=== PATIENT | female | born 1950 | race African-American/Black ===

== ENCOUNTER 2018-02-24 13:41 | Outpatient (CLI) | payer MEDICARE ==
--- NOTE | 2018-02-25 08:17 | Mammography Report ---
Bilateral mammogram: Compared to 05/16/15. CAD study utilized. Findings: Bilateral stable breast implants. Adjacent breast parenchyma there is no microcalcification or distinct mass. Benign findings. Benign exam. Impression: Benign findings. Annual followup recommended. BI-RADS CATEGORY: 2 = Benign ACR BI-RADS MAMMOGRAPHIC CODES: 0 = Needs additional imaging evaluation; 1 = Negative; 2 = Benign; 3 = Probably benign; 4 = Suspicious; 5 = Malignant; 6 = Known biopsy-proven malignancy COMMENT: 1. Dense breast tissue, i.e., adenosis, fibrocystic changes, etc., may obscure an underlying neoplasm. 2. Approximately 10% of cancers are not detected with mammography. 3. A negative mammography report should not delay biopsy if a clinically suspicious mass is present. COMMENT: Patient follow-up letters are generated in [employer].
== END 2018-02-24 13:42 | disposition home or self-care (01) ==
LOC: MAMMO 13:41
PROVIDERS: ATTEND Internal Medicine
DX: Z12.31 Encounter for screening mammogram for malignant neoplasm of breast (principal)
CPT/HCPCS: 77067

== ENCOUNTER 2018-09-22 09:45 | Outpatient (CLI) | payer MEDICARE ==
[2018-09-22 13:50] LABS: Chol/HDL Ratio 2.84 %
== END 2018-09-22 09:46 | disposition home or self-care (01) ==
LOC: LAB 09:45
PROVIDERS: ATTEND Internal Medicine
DX: E78.5 Hyperlipidemia, unspecified (principal); E55.9 Vitamin D deficiency, unspecified; I10 Essential (primary) hypertension
CPT/HCPCS: 36415; 80061; 82306; 83036

== ENCOUNTER 2019-03-08 10:17 | Outpatient (CLI) | payer MEDICARE ==
[2019-03-08 11:18] LABS: Hematocrit 43.4 % (30.3-42.9); Hemoglobin 14.5 gm/dl (10.1-14.3); Mean Corpuscular HGB Conc 33 % (30-34); Mean Corpuscular Volume 89 fl (79-97); Platelet Count 220 K/mm3 (140-440); Red Cell Distribution Width 13.6 % (13.2-15.2)
[2019-03-08 11:31] LABS: Alanine Aminotransferase 14 units/L (7-56); Albumin 4.3 g/dL (3.9-5); BUN/Creatinine Ratio 24; Blood Urea Nitrogen 17 mg/dL (7-17); Calcium 8.9 mg/dL (8.4-10.2); Chol/HDL Ratio 2.01 %; HDL Cholesterol 91 mg/dL (40-59); Hemolysis Index 2; LDL Cholesterol,Direct 110 mg/dL (50-130)
[2019-03-12 00:34] LABS: Vitamin D, 25-OH, D2 <4 ng/mL
== END 2019-03-08 10:18 | disposition home or self-care (01) ==
LOC: LAB 10:17
PROVIDERS: ATTEND Internal Medicine
DX: Z13.21 Encounter for screening for nutritional disorder (principal); Z13.1 Encounter for screening for diabetes mellitus; E55.9 Vitamin D deficiency, unspecified; E78.5 Hyperlipidemia, unspecified; R79.89 Other specified abnormal findings of blood chemistry
CPT/HCPCS: 36415; 80053; 80061; 82306; 82607; 83036; 84443; 85027

== ENCOUNTER 2019-06-30 10:35 | Outpatient (CLI) | payer MEDICARE ==
--- NOTE | 2019-06-30 11:39 | Mammography Report ---
DIGITAL SCREENING MAMMOGRAM WITH CAD, 06/30/2019 INDICATION: Routine screening mammography. TECHNIQUE: Digital bilateral 2D mammography was obtained in the craniocaudal and mediolateral obliq ue projections without and with implant displacement. This examination was interpreted with the benef it of Computer-Aided Detection analysis. COMPARISON: 02/24/2018 FINDINGS: Breast Density: The breasts are heterogeneously dense, which may obscure small masses. There is no evidence of dominant mass, suspicious calcifications or architectural distortion in eithe r breast. Bilateral subpectoral implants in place IMPRESSION: No mammographic evidence of malignancy. Follow up recommendation: Routine yearly BI-RADS Category 2: Benign. A "normal" or negative report should not discourage follow up or biopsy of a clinically significant f inding. A written summary of these findings will be mailed to the patient. The patient will be entered into a mammography reporting system which will generate a reminder letter for the patient's next appointmen t at the appropriate interval. The [employer] recommends yearly mammograms starting at age 40 and continuing as l bobby as a woman is in good health. Breast MRI is recommended for women with an approximate 20-25% or greater lifetime risk of breast cancer, including women with a strong family history of breast or ova beck cancer or who have been treated for Hodgkin's disease. Signer Name: Dex Villegas MD Signed: 06/30/2019 11:35 AM Workstation Name: [id number]
== END 2019-06-30 10:36 | disposition home or self-care (01) ==
LOC: MAMMO 10:35
PROVIDERS: ATTEND Internal Medicine
DX: Z12.31 Encounter for screening mammogram for malignant neoplasm of breast (principal)
CPT/HCPCS: 77067

== ENCOUNTER 2019-08-14 10:07 | Outpatient (CLI) | payer MEDICARE ==
[2019-08-14 11:59] LABS: Chol/HDL Ratio 2.02 %
== END 2019-08-14 10:08 | disposition home or self-care (01) ==
LOC: LAB 10:07
PROVIDERS: ATTEND Internal Medicine
DX: R73.03 Prediabetes (principal); E78.5 Hyperlipidemia, unspecified
CPT/HCPCS: 36415; 80061; 83036

== ENCOUNTER 2019-08-21 11:09 | Outpatient (CLI) | payer MEDICARE ==
--- NOTE | 2019-08-21 12:18 | Ultrasound Report ---
LEFT BREAST ULTRASOUND HISTORY: Palpable left breast lump at 1:00 COMPARISON: 06/30/2019 mammogram FINDINGS: Sonographic evaluation focused upon the 1:00 location of the left breast demonstrates no ma ss, cyst or suspicious shadowing. However, there is a palpable focal bulge in the breast implant at 1:00 10 cm from the nipple from the nipple. IMPRESSION: Capsular rupture with focal bulge of the breast implant through a defect in the capsule which is palp able at 1:00 10 cm from the nipple. No suspicious finding. Recommend clinical follow-up and routine mammographic screening. BIRADS 2: Benign Signer Name: Dex Villegas MD Signed: 08/21/2019 12:13 PM Workstation Name: [id number]
== END 2019-08-21 11:10 | disposition home or self-care (01) ==
LOC: SPVWC 11:09
PROVIDERS: ATTEND Surgery
DX: N63.21 Unspecified lump in the left breast, upper outer quadrant (principal)

== ENCOUNTER 2019-08-30 10:57 | Outpatient (CLI) | payer MEDICARE ==
[2019-08-30 14:05] LABS: Basophils % (Auto) 0.7 % (0.0-1.8); Eosinophils % (Auto) 0.2 % (0.0-4.3); Hematocrit 44.6 % (30.3-42.9); Hemoglobin 14.9 gm/dl (10.1-14.3); Lymphocytes # (Auto) 0.9 K/mm3 (1.2-5.4); Lymphocytes % (Auto) 29.5 % (13.4-35.0); Mean Corpuscular HGB Conc 33 % (30-34); Mean Corpuscular Volume 90 fl (79-97); Monocytes # (Auto) 0.4 K/mm3 (0.0-0.8); Monocytes % (Auto) 13.2 % (0.0-7.3); Platelet Count 201 K/mm3 (140-440); Red Blood Count 4.98 M/mm3 (3.65-5.03); Red Cell Distribution Width 12.7 % (13.2-15.2)
[2019-08-30 14:38] LABS: Alanine Aminotransferase 15 units/L (7-56); Albumin 4.4 g/dL (3.9-5); BUN/Creatinine Ratio 15; Blood Urea Nitrogen 12 mg/dL (7-17); Calcium 8.9 mg/dL (8.4-10.2); Hemolysis Index 8
== END 2019-08-30 10:58 | disposition home or self-care (01) ==
LOC: LAB 10:57
PROVIDERS: ATTEND Internal Medicine
DX: R50.9 Fever, unspecified (principal)
CPT/HCPCS: 36415; 80053; 85025

== ENCOUNTER 2020-02-26 13:33 | Outpatient (CLI) | payer MEDICARE ==
[2020-02-26 14:29] LABS: Basophils % (Auto) 0.7 % (0.0-1.8); Eosinophils # (Auto) 0.3 K/mm3 (0.0-0.4); Eosinophils % (Auto) 8.1 % (0.0-4.3); Hematocrit 41.1 % (30.3-42.9); Hemoglobin 13.9 gm/dl (10.1-14.3); Lymphocytes # (Auto) 1.6 K/mm3 (1.2-5.4); Lymphocytes % (Auto) 40.5 % (13.4-35.0); Mean Corpuscular HGB Conc 34 % (30-34); Mean Corpuscular Volume 89 fl (79-97); Monocytes # (Auto) 0.4 K/mm3 (0.0-0.8); Monocytes % (Auto) 10.2 % (0.0-7.3); Platelet Count 213 K/mm3 (140-440); Red Blood Count 4.63 M/mm3 (3.65-5.03); Red Cell Distribution Width 13.4 % (13.2-15.2)
[2020-02-26 14:30] LABS: Alanine Aminotransferase 20 units/L (7-56); Albumin 4.1 g/dL (3.9-5); Blood Urea Nitrogen 15 mg/dL (7-17); Calcium 9.7 mg/dL (8.4-10.2); Chol/HDL Ratio 1.88 %; HDL Cholesterol 95 mg/dL (40-59); Hemolysis Index 1; LDL Cholesterol,Direct 83 mg/dL (50-130)
[2020-02-26 14:34] LABS: BUN/Creatinine Ratio 25
--- NOTE | 2020-02-26 15:46 | XRay Report ---
CHEST 2 VIEWS INDICATION: CHRONIC OBSTRUCTIVE PULMONARY DISEASE. COMPARISON: 09/06/2019 FINDINGS: Support devices: None. Heart: Within normal limits. Lungs/pleura: The lungs are hyperinflated consistent with advanced emphysema. No acute air space or i nterstitial disease. No pleural effusion or pneumothorax. Scattered calcified granulomas in the left upper lobe are unchanged. Additional findings: None. IMPRESSION: No acute findings. COPD. Signer Name: Pradeep Barba Jr, MD Signed: 02/26/2020 3:42 PM Workstation Name: [id number]
== END 2020-02-26 13:34 | disposition home or self-care (01) ==
LOC: LAB 13:33
PROVIDERS: ATTEND Internal Medicine
DX: J44.9 Chronic obstructive pulmonary disease, unspecified (principal); E78.5 Hyperlipidemia, unspecified; E55.9 Vitamin D deficiency, unspecified; Z13.21 Encounter for screening for nutritional disorder; Z13.29 Encounter for screening for other suspected endocrine disorder
CPT/HCPCS: 36415; 71046; 80053; 80061; 82306; 82607; 83036; 84443; 85025

== ENCOUNTER 2020-07-25 13:16 | Outpatient (CLI) | payer MEDICARE ==
--- NOTE | 2020-07-25 15:41 | Mammography Report ---
DIGITAL SCREENING MAMMOGRAM WITH CAD, 07/25/2020 CLINICAL INFORMATION / INDICATION: Routine screening mammography. ROUTINE TECHNIQUE: Digital bilateral 2D mammography was obtained in the craniocaudal and mediolateral obliqu e projections. This examination was interpreted with the benefit of Computer-Aided Detection analysis . COMPARISON: 06/30/2019 and 02/24/2018 FINDINGS: Breast Density: The breasts are heterogeneously dense, which may obscure small masses. No dominant mass, suspicious calcifications, or architectural distortion in either breast. Bilateral subpectoral implants are intact. IMPRESSION: No mammographic evidence of malignancy. Follow up recommendation: Routine yearly BI-RADS Category 2: Benign. A "normal" or negative report should not discourage follow up or biopsy of a clinically significant f inding. A written summary of these findings will be mailed to the patient. The patient will be entered into a mammography reporting system which will generate a reminder letter for the patient's next appointmen t at the appropriate interval. The [employer] recommends yearly mammograms starting at age 40 and continuing as l bobby as a woman is in good health. Breast MRI is recommended for women with an approximate 20-25% or greater lifetime risk of breast cancer, including women with a strong family history of breast or ova beck cancer or who have been treated for Hodgkin's disease. Signer Name: Saurav Krishnan MD Signed: 07/25/2020 3:36 PM Workstation Name: [email or web address]
== END 2020-07-25 13:17 | disposition home or self-care (01) ==
LOC: MAMMO 13:16
PROVIDERS: ATTEND Internal Medicine
DX: Z12.31 Encounter for screening mammogram for malignant neoplasm of breast (principal)
CPT/HCPCS: 77067

== ENCOUNTER 2020-08-22 10:52 | Outpatient (CLI) | payer MEDICARE ==
[2020-08-22 11:41] LABS: Chol/HDL Ratio 1.73 %
== END 2020-08-22 10:53 | disposition home or self-care (01) ==
LOC: LAB 10:52
PROVIDERS: ATTEND Internal Medicine
DX: R73.9 Hyperglycemia, unspecified (principal); E78.5 Hyperlipidemia, unspecified
CPT/HCPCS: 36415; 80061; 83036

== ENCOUNTER 2021-09-12 13:27 | Outpatient (CLI) | payer MEDICARE | END 2021-09-12 13:28 | disposition home or self-care (01) | LOC: MAMMO 13:27 | PROVIDERS: ATTEND Internal Medicine | DX: Z12.31 Encounter for screening mammogram for malignant neoplasm of breast (principal) | CPT/HCPCS: 77067 ==